=== PATIENT | male | born 1950 | race Caucasian/White ===

== ENCOUNTER 2017-03-24 17:32 | Emergency (ER) | payer OTHER ==
[~2017-03-24] VITALS: Ht 182.9 cm; Wt 99.0 kg
[2017-03-24 17:41] VITALS: TEMP 36.9; Ht 182.9 cm; Wt 99.0 kg
[2017-03-24] MEDS ORDERED: OXYMETAZOLINE HCL 0.05% NA SPR 15 ML BTL ONE (18:30)
[2017-03-24] MEDS ORDERED: SILVER NITR/POTASSIUM NITRATE APPLICATOR EXT STA (18:52)
[2017-03-24] MEDS ORDERED: SILVER NITR/POTASSIUM NITRATE APPLICATOR ONE (18:54)
[2017-03-24 19:02] LABS: BASO % 0.5 %; BASO ABS # 0.03 K/uL (0-0.2); EOS % 1.4 %; EOS ABS # 0.09 K/uL (0-0.5); HEMATOCRIT 44.1 % (42-52); HEMOGLOBIN 15.4 g/dL (14.0-18.0); IG# 0.01 K/uL (0.00-0.02); LYMPH % 40.5 %; LYMPH ABS # 2.54 K/uL (1.2-3.4); MEAN CELL VOLUME 90.4 fL (80-100); MEAN CORPUSCULAR HEMOGLOBIN 31.6 pg (25-34); MEAN CORPUSCULAR HGB CONC 34.9 g/dl (32-36); MEAN PLATELET VOLUME 10.6 fL (7.4-10.4); MONO ABS # 0.75 K/uL (0.11-0.59); NEUT % 45.4 %; NEUT ABS # 2.85 K/uL (1.4-6.5); PLATELET COUNT 184 K/uL (130-400); RED CELL DISTRIBUTION WIDTH CV 12.2 % (11.5-14.5); RED CELL DISTRIBUTION WIDTH SD 40.1 fL (36.4-46.3); WHITE BLOOD COUNT 6.27 K/uL (4.8-10.8)
[2017-03-24 19:24] LABS: ALBUMIN 3.8 gm/dl (3.4-5.0); CALCIUM 8.6 mg/dl (8.5-10.1); CREATININE 0.96 mg/dl (0.60-1.40); POTASSIUM 3.7 mmol/L (3.5-5.1)
[2017-03-24 19:26] LABS: TOTAL PROTEIN 7.9 gm/dl (6.4-8.2)
[2017-03-24 19:58] VITALS: BP 161/90; PULSE 65; O2SAT 95
--- NOTE | 2017-03-24 20:07 | EMERGENCY ROOM VISIT NOTE ---
History First contact with patient: 17:48 Chief Complaint: NOSE BLEED (MINOR) Stated Complaint: 3RD NOSEBLEED TODAY,6TH IN 3 DAYS History of Present Illness The patient is a 66 year old male who presents to the Emergency Room via private vehicle with complaints of "third nosebleed today, 6 and 3 days". The patient states that for the past 3 days he has had nosebleeds. There has been no trauma or injury. He denies anticoagulant use. He states that he had 2 nosebleeds this morning when a 5 AM the other at 7:30. He notes that he has no history of nosebleeds quite like this. He has a history of deviated nasal septum over 30 years ago. He states that now he feels difficulty breathing secondary to the amount of blood is going down his throat. He denies any dizziness. Review of Systems A complete 6-point Review of Systems was discussed with the patient, with pertinent positives and negatives listed in the History of Present Illness. All remaining Review of Systems questions can be considered negative unless otherwise specified. Past Medical/Surgical History Noncontributory. Family History No pertinent. Social History Patient lives locally. Physical Exam Vital Signs Date Time Temp Pulse Resp B/P (MAP) Pulse Ox O2 Delivery O2 Flow Rate FiO2 03/24/17 19:58 65 17 161/90 95 Room Air 03/24/17 17:41 36.9 73 20 182/89 98 Physical Exam VITAL SIGNS - Vital signs and nursing notes were reviewed. Stable. Hypertensive. GENERAL -66-year-old male appearing his stated age who is in no acute distress. Communicates well with provider and answers questions appropriately. SKIN - Without rashes. No petechial rashes. HEAD - NC/AT. EYES - PERRL with EOMI bilaterally. Sclera anicteric. EARS - No deformities of external structures noted on gross examination bilaterally. There is blood behind the left eardrum. NOSE - Midline and without cyanosis. Profuse bleeding from both nares noted. MOUTH/OROPHARYNX - Without perioral cyanosis. Blood noted draining down the posterior pharynx. Medical Decision & Procedures Laboratory Results 03/24/17 18:40 Red Blood Count 4.88, Mean Corpuscular Volume 90.4, Mean Corpuscular Hemoglobin 31.6, Mean Corpuscular Hemoglobin Concent 34.9, Mean Platelet Volume 10.6, Neutrophils (%) (Auto) 45.4, Lymphocytes (%) (Auto) 40.5, Monocytes (%) (Auto) 12.0, Eosinophils (%) (Auto) 1.4, Basophils (%) (Auto) 0.5, Neutrophils # (Auto ) 2.85, Lymphocytes # (Auto) 2.54, Monocytes # (Auto) 0.75, Eosinophils # (Auto ) 0.09, Basophils # (Auto) 0.03 03/24/17 18:40 Test 03/24/17 18:40 White Blood Count 6.27 K/uL (4.8-10.8) Red Blood Count 4.88 M/uL (4.7-6.1) Hemoglobin 15.4 g/dL (14.0-18.0) Hematocrit 44.1 % (42-52) Mean Corpuscular Volume 90.4 fL (80-100) Mean Corpuscular Hemoglobin 31.6 pg (25-34) Mean Corpuscular Hemoglobin Concent 34.9 g/dl (32-36) Platelet Count 184 K/uL (130-400) Mean Platelet Volume 10.6 fL (7.4-10.4) Neutrophils (%) (Auto) 45.4 % Lymphocytes (%) (Auto) 40.5 % Monocytes (%) (Auto) 12.0 % Eosinophils (%) (Auto) 1.4 % Basophils (%) (Auto) 0.5 % Neutrophils # (Auto) 2.85 K/uL (1.4-6.5) Lymphocytes # (Auto) 2.54 K/uL (1.2-3.4) Monocytes # (Auto) 0.75 K/uL (0.11-0.59) Eosinophils # (Auto) 0.09 K/uL (0-0.5) Basophils # (Auto) 0.03 K/uL (0-0.2) RDW Standard Deviation 40.1 fL (36.4-46.3) RDW Coefficient of Variation 12.2 % (11.5-14.5) Immature Granulocyte % (Auto) 0.2 % Immature Granulocyte # (Auto) 0.01 K/uL (0.00-0.02) Prothrombin Time 10.7 SECONDS (9.0-12.0) Prothromb Time International Ratio 1.0 (0.9-1.1) Activated Partial Thromboplast Time 27.0 SECONDS (21.0-31.0) Partial Thromboplastin Ratio 1.0 Anion Gap 7.0 mmol/L (3-11) Est Creatinine Clear Calc Drug Dose 91.0 ml/min Estimated GFR () 94.4 Estimated GFR (Non- 81.5 BUN/Creatinine Ratio 24.5 (10-20) Calcium Level 8.6 mg/dl (8.5-10.1) Total Bilirubin 0.7 mg/dl (0.2-1) Aspartate Amino Transf (AST/SGOT) 12 U/L (15-37) Alanine Aminotransferase (ALT/SGPT) 18 U/L (12-78) Alkaline Phosphatase 92 U/L (45-117) Total Protein 7.9 gm/dl (6.4-8.2) Albumin 3.8 gm/dl (3.4-5.0) Globulin 4.1 gm/dl (2.5-4.0) Albumin/Globulin Ratio 0.9 (0.9-2) Medications Administered Medications (Trade) Dose Ordered Sig/Dinorah Route Start Time Stop Time Status Last Admin Dose Admin Oxymetazoline HCl (Afrin 0.05% Nasal [place]) 75 sprays STK-MED ONCE .ROUTE 03/24/17 18:30 03/24/17 18:31 DC 03/24/17 18:37 75 SPRAYS Medical Decision Patient was seen and evaluated as above. Presents to us today with a nosebleed. He is bleeding quite a bit on exam, was given Afrin protocol and it persisted. The attending physician and I then elected to cauterize the wound. Please refer to Dr. Muñiz's regarding the procedure he performed. He was able to successfully cauterized the patient's wound and packed this with a hemostatic agent. The patient was extremely pleased. IV access was also established when the patient came to the emergency department secondary to the nature of the nosebleed. He is not anemic. He does appear to be dehydrated. He was informed upon this. He is to follow with a family doctor. The packing will fall out of the nose on its own. I do recommend follow-up with ENT. He was given the contact information. He was found to be hypertensive here which was improving but was made aware of this. Medication list was reviewed. He appears stable from patient management. He was educated upon management, educated upon worrisome symptoms in which to return, had questions answered prior to discharge, and was discharged home in good condition. In evaluation treatment this patient following differential diagnoses were entertained: Anterior epistaxis, posterior epistaxis, among others. Impression Primary Impression: Epistaxis Departure Information Dispostion Home / Self-Care Condition GOOD Referrals No Doctor, Assigned (PCP) Patient Instructions [facility]
--- NOTE | 2017-03-24 23:19 | EMERGENCY ROOM VISIT NOTE ---
ED Visit Note First contact with patient: 17:48 The patient was seen and examined with Eric Arora PA-C. I agree with the history, physical and findings. Please see the note for disposition and details. The patient has significant nosebleed. His clots were removed. He was treated with cautery as noted below. He did very well and was very pleased. Referral was made to ENT. PROCEDURE NOTE: Anterior Nasal Cautery: Clots were removed with suction and bleeding source identified. The naris was prepped with Afrin. Silver nitrate used to cauterize bleeding source. Fribrillar hemostatic cellulose applied over the area. Hemostasis achieved. The patient tolerated this well. No complications.
== END 2017-03-24 20:20 | disposition home or self-care (01) ==
LOC: C.EDB 17:35 → EDBD 17:35 → C.EDD 20:20
DX: R04.0 Epistaxis (principal); R03.0 Elevated blood-pressure reading, without diagnosis of hypertension